=== PATIENT | female | born 1970 | race Caucasian/White ===

== ENCOUNTER → 2020-03-12 | Outpatient (CLI) | payer OTHER | LOC: M.LAB 13:11 | DX: Z11.59 Encounter for screening for other viral diseases (principal); Z20.828 Contact with and (suspected) exposure to other viral communicable diseases ==

== ENCOUNTER 2022-01-03 19:29 | Emergency (ER) | payer OTHER ==
[~2022-01-03] VITALS: Ht 167.6 cm; Wt 79.4 kg
[2022-01-03] MEDS ORDERED: LASIX 40 MG TAB40 MG PO (19:45)
[2022-01-03] MEDS ORDERED: CLARITIN10 M3 PO (19:45)
[2022-01-03] MEDS ORDERED: KLOR-CON M2020 MEQ PO (19:46)
[2022-01-03] MEDS ORDERED: LEXAPRO 10 MG T10 M2 PO (19:46)
[2022-01-03 20:21] LABS: INFLUENZA A ANTIGEN Negative (Negative); INFLUENZA B ANTIGEN Negative (Negative)
[2022-01-03 20:33] LABS: HEMATOCRIT 40.9 % (37.0-47.0); HEMOGLOBIN 13.9 gm/dL (12.0-15.0); MCH 29.5 pg (26.0-34.0); MCV 86.9 fL (80.0-100.0); MPV 7.7 fl. (7.2-11.1); RBC 4.7 mil/uL (4.20-5.00); RDW-CV 15.8 % (10.5-14.5)
[2022-01-03 20:41] LABS: CALCIUM 9.2 mg/dL (8.5-10.1); CREATININE 0.6 mg/dL (0.6-1.3)
[2022-01-03 20:46] LABS: ALBUMIN 4.5 g/dL (3.4-5.0); TOTAL BILIRUBIN 0.6 mg/dL (<0.1-1.0); TOTAL PROTEIN 7.8 g/dL (6.4-8.2)
[2022-01-03 21:58] VITALS: BP 137/77
== END 2022-01-03 22:00 | disposition home or self-care (01) ==
LOC: M.ERS 19:29
PROVIDERS: Personal Emergency Response Attendant
DX: U07.1 COVID-19 (principal); E87.6 Hypokalemia; Z79.899 Other long term (current) drug therapy